=== PATIENT | female | born 1990 | race Caucasian/White ===

== ENCOUNTER 2019-07-19 13:51 | Emergency (ER) | payer OTHER ==
[~2019-07-19] VITALS: Ht 167.6 cm; Wt 61.2 kg
--- NOTE | 2019-07-19 14:20 | NUR ---
PATIENT ARRIVED AT UNIT. WITH C/O ABDOMINAL PAIN, N/V SINCE AM. ADMITS TO DRINKING ALCOHOL LAST NIGHT. CONNECTED TO MONITOR. WILL CONTINUE TO MONITOR ACCORDINGLY
--- NOTE | 2019-07-19 14:21 | NUR ---
MOTHER AT BEDSIDE
--- NOTE | 2019-07-19 14:34 | NUR ---
ADDENDUM: Intravenous End Time Documentation: D51/2 NS 1 liter (IV-WO) : start time:1434; end time:1534 : IV site: LAC # [id number] Port # 1
[2019-07-19] MEDS ORDERED: ONDANSETRON HCL/PF 4 MG/2 ML VIAL ONE (14:41)
[2019-07-19 14:47] LABS: BASOPHILS % (AUTO) 0.3 % (0.0-2.0); HEMATOCRIT 35 % (33-45); HEMOGLOBIN 10.8 g/dL (11.5-14.8); LYMPHOCYTES # (AUTO) 0.9 /CMM (0.8-4.8); LYMPHOCYTES % (AUTO) 12.3 % (20.0-44.0); MEAN CORPUSCULAR HGB CONC 31 g/dl (31.0-36.0); MEAN CORPUSCULAR VOLUME 71 fL (82-100); MONOCYTES # (AUTO) 0.5 /CMM (0.1-1.30); MONOCYTES % (AUTO) 6.3 % (2.0-12.0); NEUTROPHILS # (AUTO) 6.1 /CMM (1.8-8.9); NEUTROPHILS % (AUTO) 81.1 % (43.0-81.0); PLATELET COUNT (AUTO) 190 /CMM (150-450); RED BLOOD CELL COUNT(AUTO) 4.87 MIL/uL (4.0-5.2); WHITE BLOOD COUNT (AUTO) 7.6 K/uL (4.3-11.0)
[2019-07-19 15:00] LABS: CALCIUM, SERUM 9.3 mg/dL (8.5-10.1); CREATININE 0.6 mg/dL (0.6-1.3); POTASSIUM 3.8 mmol/L (3.5-5.1)
[2019-07-19] MEDS ORDERED: IV D5/0.45 NACL 1,000 ML IV ONE (15:00)
[2019-07-19] MEDS ORDERED: ONDANSETRON HCL/PF 4 MG/2 ML VIAL IVP ONE (15:00)
[2019-07-19] MEDS ORDERED: ONDANSETRON 4 MG TAB.RAPDIS ONE (15:34)
--- NOTE | 2019-07-19 15:43 | NUR ---
IV removed. Catheter intact and site benign. Pressure and 4x4 applied to site. No bleeding noted.Patient discharged to home in stable condition. Written and verbal after care instructions given. Patient verbalizes understanding of instruction. Written prescription provided to patient
[2019-07-19 15:44] VITALS: BP 110/63
[2019-07-19] MEDS ORDERED: ONDANSETRON 4 MG TAB.RAPDIS PO ONE (16:00)
[2019-07-19 16:09] LABS: LYMPHOCYTES % (MANUAL) 11 % (16-48); MONOCYTES % (MANUAL) 8 % (0-11.0); NEUTROPHILS % (MANUAL) 81 (42-76)
== END 2019-07-19 15:57 | disposition home or self-care (01) ==
LOC: ER 13:54
DX: K29.20 Alcoholic gastritis without bleeding (principal); F10.10 Alcohol abuse, uncomplicated; R11.2 Nausea with vomiting, unspecified; Y90.9 Presence of alcohol in blood, level not specified
CPT/HCPCS: 36415; 80048; 85025; 96361; 96374; 99283; J2405; J3490; Q0162